=== PATIENT | male | born 1975 | race Caucasian/White ===

== ENCOUNTER 2018-10-12 09:56 | Day surgery (SDC) | payer OTHER ==
[2018-10-11 18:37] VITALS: BMI 30.2
[~2018-10-12] VITALS: Ht 165.1 cm; Wt 82.1 kg
[2018-10-12] VITALS (12 sets, daily range): BP systolic 108–155; BP diastolic 62–90; PULSE 51–90; RESP 14–22; Ht 165.1 cm; Wt 82.1 kg
[~2018-10-12 09:56] MED LIST: CEFAZOLIN 2 GM/50 ML (PMX) 50 ML IVPB SCH
[2018-10-12] MEDS ORDERED: TERB250T13 PO (11:13)
[2018-10-12] MEDS ORDERED: SOD CHLORIDE 0.9% 1,000 ML IV ONE (11:30)
[2018-10-12] MEDS ORDERED: LIDOCAINE 1% (MPF) 30 ML INJ ONE (12:25)
[2018-10-12] MEDS ORDERED: BUPIVACAINE 0.25%/EPI (SDV) 30 ML INJ ONE (12:25)
--- NOTE | 2018-10-12 12:39 | PREAC ---
Date/Time of Note Date/Time of Note DATE: 10/12/18 TIME: 12:36 Anesthesia Eval and Record Evaluation Time Pre-Procedure Interview DATE: 10/12/18 TIME: 12:36 Age 42 Sex male NPO: 8 hrs Preoperative diagnosis Sc lesion rt posterior neck, lt lower back Planned procedure Excision of rt post neck and lt lower back lesions Past Medical History Past Medical History: Includes Cardio: Dyslipidemia GI: Morbid obesity Surgery & Anesthesia Issues No known issue Meds Anticoagulation: No Beta Elinor within 24 hr: No Reason Beta Elinor not given: Pt. not on B-Elinor Reported Medications Terbinafine Hcl* (Terbinafine Hcl*) 250 Mg Tablet, 250 MG PO DAILY, TAB 10/12/18 Current Medications Cefazolin Sodium/ Dextrose 50 ml @ 100 mls/hr PRE-OP IVPB ; Start 10/12/18 at 07:00; Stop 10/12/18 at 19:00 Sodium Chloride 1,000 ml @ 75 mls/hr [id number] ONCE IV ; Start 10/12/18 at 11:30; Stop 10/13/18 at 00:49 Meds reviewed: Yes Allergies Coded Allergies: No Known Allergy (Unverified , 10/12/18) Allergies Reviewed: Yes Labs/Studies Labs Reviewed: Reviewed by anesthesiologist test: N/A Studies: ECG Pre-procedure Exam Last vitals Vital Signs Date Temp Pulse Resp B/P (MAP) Pulse Ox O2 O2 Flow FiO2 Time Delivery Rate 10/12/18 97.7 51 18 109/73 16 Room Air 11:25 (85) Airway: Adequate mouth opening, Adequate thyromental dist Mallampati: Mallampati II Teeth: Normal Lung: Normal Heart: Normal ASA Physical Status ASA physical status: 3 Emergency: None Planned Anesthetic General/MAC: MAC Planned Pain Management Parenteral pain med, Local by surgeon Pre-operative Attestations Prior to commencing anesthesia and surgery, the patient was re-evaluated, there was verification of: *The patient's identity *The results of appropriate recent lab work and preoperative vital signs *The above evaluation not changing prior to induction *Anesthetic plan, risk benefits, alternative and complications discussed with patient/family; questions answered; patient/family understands, accepts and wishes to proceed. JIN BILL MD Oct 12, 2018 12:39
[2018-10-12] MEDS ORDERED: MIDAZOLAM 1 MG/ML 2 ML INJ ONE (12:41)
[2018-10-12] MEDS ORDERED: FENTAnyl 50 MCG/ML VIAL ONE (12:41)
[2018-10-12] MEDS ORDERED: ONDANSETRON 4 MG INJ ONE (13:56)
[2018-10-12] MEDS ORDERED: PROPOFOL 20 ML ONE (13:56)
[2018-10-12] MEDS ORDERED: CEFAZOLIN 1 GM INJ ONE (13:56)
[2018-10-12] MEDS ORDERED: LIDOCAINE 2% (SDV) 5 ML INJ ONE (13:56)
--- NOTE | 2018-10-12 14:06 | PAC ---
Date/Time of Note Date/Time of Note DATE: 10/12/18 TIME: 14:05 Post-Anesthesia Notes Post-Anesthesia Note Last documented vital signs Vital Signs Date Temp Pulse Resp B/P (MAP) Pulse Ox O2 O2 Flow FiO2 Time Delivery Rate 10/12/18 98.0 14:03 10/12/18 51 18 109/73 16 Room Air 11:25 (85) Activity: WNL Respiratory function: WNL Cardiovascular function: WNL Mental status: Baseline Pain reasonably controlled: Yes Hydration appropriate: Yes Nausea/Vomiting absent: Yes Comments BP:134/67, P:78, Spo2:100%, T:98,8 JIN BILL MD Oct 12, 2018 14:05
--- NOTE | 2018-10-12 14:25 | OPR ---
Date/Time of Note Date/Time of Note DATE: 10/12/18 TIME: 14:16 Operative Report Preoperative Diagnosis Lipoma of the right superior back and left lower flank Postoperative Diagnosis Lipoma of the right superior back and left lower flank Operation/Procedure Performed Excision of benign tumor of the flank/back 5 cm, left lower back, subcutaneous layer Excision of benign tumor of right superior back/shoulder, 3 cm, embedded deep in the fascial plane Surgeon Ellen Schultz MD FACS Button Breaker none Anesthesia Type: general Estimated Blood Loss: minimal Transfusion none Specimen Lipoma x 2 Grafts/Implants none Complications none Pt Condition Post Procedure: stable Disposition: PACU Indications This patient has 2 lipomas as noted above that have been causing significant pain and discomfort and he was therefore referred to our clinic for evaluation. After risks and benefits were explained he opted for excision. Procedure Description Patient was laid prone on the operating room table and his left flank and right shoulder posteriorly and the back were both prepped and draped with Betadine solution in a sterile manner. A timeout was conducted. A 5 cm incision was made along the left lower back area along the flank where a lump could be palpated deep to the skin. This incision was deepened with a 15 blade and at the level of the fascia a tumor could be palpated. [place] like a lipoma. Dissection was carried out circumferentially and this lipoma was excised from surrounding subcutaneous tissue and sent off to pathology with his capsule inta ct. The wound bed was irrigated with saline and then closed with interrupted 2- 0 Ethilon sutures. The patient also had a small lump about 3 cm in the right posterior shoulder region at the junction of the neck and back. A 3 cm incision was made at the ar ea overlying the region with a 15 blade and deepened with electrocautery through the subcutaneous tissue. A lump could be palpated and it was noted to be embedded between the muscle fibers and fascia along the insertion of the levator scapulae and rhomboid muscle medially just adjacent to the spine 2 cm lateral to the midline of the back. If this fascia and muscle had to be slightly excised with electrocautery to free up the tumor surrounding it. A lipomatous-like lesion was thereafter excised. I noted at the center of the lipoma instead of being completely yellow and had a slightly white tinge to it and was slightly firmer and appeared perhaps calcified. I sent the specimen off to pathology. The wound was thereafter irrigated and closed in 2 layers using interrupted 3-0 Vicryl sutures for the subcutaneous layer and interrupted 3-0 Ethilon for the skin closure. The wound was irrigated with saline again and thereafter wet and dry dressings were applied to both wounds and they were covered with Band-Aid. Prior to closure 10 mL of a combination of quarter percent Marcaine with epi and 1% lidocaine plain were instilled into the dermis and the wound bed for local analgesia. Patient tolerated the procedure well. All instrument sponge and needle counts were correct at the end of the procedure. Patient was dispositioned to the recovery suite in stable condition. ELLEN SCHULTZ Oct 12, 2018 14:25
[2018-10-12] MEDS: HYDROmorphONE 1 MG/5 ML IV SYRINGE IV PRN ×2 (14:27→14:33)
[2018-10-12] MEDS ORDERED: DIPHENHYDRAMINE 50 MG INJ IV PRN (14:30)
[2018-10-12] MEDS ORDERED: HYDROmorphONE 1 MG/5 ML IV SYRINGE IV PRN (14:30)
[2018-10-12] MEDS ORDERED: MEPERIDINE 25 MG INJ IV PRN (14:30)
[2018-10-12] MEDS ORDERED: METOCLOPRAMIDE 10 MG INJ IV PRN (14:30)
[2018-10-12] MEDS ORDERED: ONDANSETRON 4 MG INJ IV PRN (14:30)
[2018-10-12] MEDS ORDERED: FENTAnyl 50 MCG/ML VIAL IV PRN (14:30)
== END 2018-10-12 16:05 | disposition home or self-care (01) ==
LOC: SDS 09:56
PROVIDERS: ATTEND Surgery Surgical Critical Care
DX: D17.1 Benign lipomatous neoplasm of skin and subcutaneous tissue of trunk (principal)
CPT/HCPCS: 11406; 12032; J0690; J1170; J2250; J2405; J3010; Z7610